=== PATIENT | female | born 1930 | race Two or more races ===

== ENCOUNTER 2017-02-23 08:41 | Outpatient (CLI) | payer OTHER | END 2017-02-23 09:05 | disposition home or self-care (01) | LOC: SONOGRAMA 08:41 → MAMO-SONO 10:15 | DX: E04.1 Nontoxic single thyroid nodule (principal) ==

== ENCOUNTER 2017-02-23 09:19 | Outpatient (CLI) | payer OTHER | END 2017-02-23 09:28 | disposition home or self-care (01) | LOC: NUCLEAR 09:19 | DX: M85.80 Other specified disorders of bone density and structure, unspecified site (principal); M81.0 Age-related osteoporosis without current pathological fracture ==

== ENCOUNTER 2019-02-17 10:01 | Outpatient (CLI) | payer OTHER | END 2019-02-17 10:50 | disposition home or self-care (01) | LOC: RAD 10:01 | DX: R07.89 Other chest pain (principal) ==

== ENCOUNTER 2019-04-25 07:14 | Outpatient (CLI) | payer OTHER | END 2019-04-25 07:16 | disposition home or self-care (01) | LOC: NUCLEAR 07:14 | DX: I25.10 Atherosclerotic heart disease of native coronary artery without angina pectoris (principal); R06.02 Shortness of breath | CPT/HCPCS: 78452; 93017; A9500; J0153 ==